=== PATIENT | female | born 1970 | race Caucasian/White ===

== ENCOUNTER 2021-11-27 16:25 | Outpatient (REF) | payer BC, SELFPAY ==
--- NOTE | 2021-11-27 14:55 | PAPFT_PTH ---
PATIENT: Carleen Nuñez LOC: [facility] U#:[id number] AGE/SX: 51/F ROOM: RE11/27/[address]: Maria Luisa Ty NP : 1970 BED: DIS: 11/27/2021 SPEC #: [id number] RECD: 11/27/21 18:38 STATUS: CHRISTINESundar GIRON #: [id number] ESTEVAN: 11/27/21 14:[address]: Maria Luisa Ty NP DEPT: FORMERLY [facility], 1928–1983 Cytology RECD BY: Hortencia Krishnamurthy ENTERED: 11/27/21 18:38 SP TYPE: PAPFT UTE DR: Unknown,Unknown Tissues: 1 - CX/ENDOCX FOR PAP SMEARS Procedures: PAP THIN PREP/[facility] Screening HPV DNA PROBE Comments: [id number]
== END 2021-11-27 16:26 | disposition home or self-care (01) ==
LOC: LBN 16:25
PROVIDERS: Visit Provider Nurse Practitioner Women's Health
DX: Z12.4 Encounter for screening for malignant neoplasm of cervix (principal); Z11.51 Encounter for screening for human papillomavirus (HPV)
CPT/HCPCS: 88142; 87624

== ENCOUNTER 2023-02-13 11:51 | Outpatient (CLI) | payer BC, SELFPAY ==
[2023-02-13 10:59] LABS: Albumin 3.9 g/dL (3.4-5.0); Alkaline Phosphatase 87 U/L (46-116); Chloride 105 mmol/L (98-107); Sodium 138 mmol/L (136-145)
[2023-02-13 11:00] LABS: Abs Immature Grans 0.01 10^3/uL (0.0-0.06); Absolute Basophil Count 0.04 10^3/uL (0.0-0.2); Absolute Eosinophil Count 0.13 10^3/uL (0.0-0.7); Absolute Monocyte Count 0.43 10^3/uL (0.1-0.8); Absolute Neutrophil Count 2.22 10^3/uL (1.2-6.7); Basophils % 0.9; Eosinophils % 2.9; HCT 39.6 % (36.0-46.0); HGB 12.9 g/dL (11.2-15.7); Immature Grans % 0.2; Lymphocytes % 37.5; MCH 28.9 pg (27.0-33.0); MCHC 32.6 % (32.0-36.0); MCV 89 fL (80-95); MPV 9.6 fL (8.0-11.0); Monocytes % 9.5; Platelet Count 229 10^3/uL (130-400); RBC 4.46 10^6/uL (3.93-5.22); RDW 14.4 % (11.7-14.6); RDW-SD 46.8 fL; WBC 4.53 10^3/uL (4.4-10.8)
[2023-02-13 11:08] LABS: Anion Gap 7.4 mmol/L (3-11); CO2 25.6 mmol/L (21.0-32.0); CREATININE 0.9 mg/dL (0.55-1.02); Potassium 4.5 mmol/L (3.5-5.1)
[2023-02-13 11:21] LABS: ALT 27 U/L (14-59); AST 21 U/L (15-37); BUN 11 mg/dL (7-18); Bilirubin, Total 0.5 mg/dL (0.2-1.0); Calcium 9.7 mg/dL (8.5-10.1); Glucose 89 mg/dL (74-106); Total Protein 8.1 g/dL (6.4-8.2)
== END 2023-02-13 11:52 | disposition home or self-care (01) ==
LOC: LBO 11:53
PROVIDERS: Visit Provider Surgery
DX: F41.9 Anxiety disorder, unspecified (principal); N39.3 Stress incontinence (female) (male); Z12.11 Encounter for screening for malignant neoplasm of colon
CPT/HCPCS: 36415; 80053; 85025

== ENCOUNTER 2023-02-18 09:03 | Day surgery (SDC) | payer BC, SELFPAY ==
--- NOTE | 2023-02-17 21:05 | COLE_ITS ---
Date of service: 02/18/23 Time of Service: 11:35 Colonoscopy Report Date of procedure: 02/18/23 Pre-op diagnosis general: CRC screening Post-op diagnosis procedure note: other (External hemorrhoids and adenomatous polyps) Surgeon: Yudelka Gutierrez Anesthesia Type: General:No Airway Estimated blood loss (mL): 3 Pathology: other Complications: None Disposition: same day Prep: Miralax/Dulcolax Retraction Time: 29 Procedure Description: After informed consent was obtained the patient was taken to the procedure room and placed in a left decubitous position. Monitors were applied and a time out was done. The patients name, date of , procedure, allergies to medications and metal in their body was reviewed. The patient was then sedated. Once sedated and comfortable a rectal exam was done. External exam was normal- adenomatous polyps internal exam revealed a normal sphincter tone and no palpable masses. The scope was then introduced and retrofelexed. Grade 1 internal hemorrhoids were identified. The scope was then advanced to the cecum without difficulty. The TI and appendiceal orifice were identified. The prep was BBPS 3 in all segments for total of 9. The scope was then slowly retracted over minutes back into the rectum over 29 minutes.. There are no diverticula noted today. She has a 0.75 cm flat polyp on the ileocecal valve that is removed with a cold biopsy forceps. She has a 1 cm flat polyp at 90 cm that is removed with a cold snare. A clip was placed across the defect. She had another 1 cm flat polyp at 80 cm. This was removed with a cold snare. A clip was placed across the de fect. She had a 0.75 cm polyp at 70 cm. This is removed with a cold snare. A clip was placed across the defect. There is no bleeding from any of the polypectomy sites. All specimen is retrieved. The scope was removed and the patient was woken up and taken back to Same day surgery in stable condition. The patient tolerated the procedure well and there were no immediate complications. Follow up: The patient should follow up in 3 years unless they develop changes in bowel habits or other new gastrointestinal complaints.
--- NOTE | 2023-02-17 21:06 | PDOC.DSDIS_ITS ---
Date of service: 02/18/23 Time of Service: 11:34 Discharge Plan Disposition Patient Disposition: Home Condition: Good Discharge Details Reason For Visit: CRC screening Attending Provider: Yudelka Gutierrez Primary Care Provider: None,None Home Meds and New Rx's Prescriptions: Continued lorazepam 1 mg tablet 1 mg PO QHS PRN activated You powder See Rx Instructions PO DAILY Rx Instructions: Daily orally daily; Simplex F 1 tab PO DAILY Discontinued polyethylene glycol 3350 17 gram/dose powder 238 g PO ONCE Qty: 238 0RF Rx Instructions: take per colonoscopy instructions bisacodyl [Dulcolax (bisacodyl)] 5 mg tablet,delayed release (DR/EC) 5 mg PO ONCE Qty: 4 0RF Rx Instructions: take per colonoscopy instructions Discharge Instructions Additional Instructions: DSU Colonoscopy Post- Op Instructions Instructions for Everyone who is given Anesthesia: For your safety, please do the following for the next twenty-four (24) hours: *Do Not operate a motor vehicle (car, truck, motorcycle, etc.) *Do Not drink alcoholic beverages or use any recreational drugs for the first 24 hours or while taking pain medications. The medications in your body may have a reaction that can be dangerous. *Do Not make any important decisions or sign any important papers. Findings: Adenomatous polyps x4 Follow up: My office will send a letter in 2 to 3 weeks time with the results of pathology and when we want you to repeat the colonoscopy, most likely 3 years to -No aspirin/NSAIDs for 5 days. 1. No lifting over 20 pounds or strenuous activity for the first 24 hours after your procedure. After 24 hours there are no restrictions on your activity but you may feel fatigued for a few days. 2. After you arrive home you may have a light meal and return to your normal diet as you can tolerate it without feeling sick to your stomach. 3. You may have a bloated, gaseous feeling in your belly (abdomen) after a colonoscopy. Passing gas and belching will help. Walking or lying down on your left side with your knees flexed may relieve the discomfort. Call the office at [phone] (Office) or [phone] (Hospital) right away if you notice any of the following: a.Vomiting of blood or ?coffee ground stools?. b.Rectal bleeding 1Tbsp, blood clots or continuous bleeding. c.Severe belly (abdominal) pain. d.A hard distended belly (abdomen) and an inability to pass gas. 4. Please don?t expect to have a normal BM (bowel movement) for 2-3 days after your procedure. 5. If there are questions regarding the findings of your procedure, please co ntact your doctor 6. If you are unable to contact your doctor with a problem, contact the hospital at [phone]. 7. Continue all your regular medications unless directed otherwise. I understand the above instructions and have no questions. Signature of Patient or Adult Escort Name of Responsible Adult Escort Signature of Nurse Date/Time Activity:: see above Diet:: see above Discharge Orders Discharge Orders: Discharge Order (Routine); Ordered 02/18/23 Ordered By: Yudelka Gutierrez DS: Diagnosis Discharge Diagnosis (1) Screening for malignant neoplasm of colon performed: Status: Acute Asessment and Plan: The patient is seen and examined after their colonoscopy.? The patient has been able to pass gas.? They are not having abdominal pain.? They have been able to tolerate liquids and a snack.? They do not have any nausea or vomiting.? They are not having any chest pain or shortness of breath.??? They are not having any rectal bleeding. Their vital signs have been stable-see nursing notes. We discussed findings during their colonoscopy, and any biopsies that were done/polyps that were removed. The patient will be sent a letter with any biopsy results, and when to repeat the colonoscopy.-see discharge instructions. Patient was given explicit instructions to follow-up regarding colonoscopy-refer to discharge instructions.? We reviewed resumption of medications. Patient verbalized understanding and discharged in stable and satisfactory condition- See nursing notes. (2) External hemorrhoids without complication: Status: Acute (3) Adenomatous polyps: Status: Acute
[2023-02-18] MEDS: Lactated Ringers 1,000 ML 80 ML IV (09:30)
[2023-02-18 09:31] VITALS: BP 106/74; PULSE 78; RESP 16; TEMP 36.1; O2SAT 100
--- NOTE | 2023-02-18 09:49 | ANES.PREOP_ITS ---
General Info Date of Service Date Performed: 02/18/23 Height: 5 ft 8 in Weight: 95.6 kg Body Mass Index (BMI): 32.0 Surgical Procedure: Operation Date: 02/18/23 09:50 Proposed Procedure Side Surgeon p Colonoscopy, possible poypectomy Yudelka Gutierrez, DO Actual Procedure Side Surgeon p Colonoscopy, possible poypectomy Yudelka Gutierrez, DO Meds Allergies and Home Medications Allergies Allergy/AdvReac Type Severity Reaction Status Date / Time bee venom protein (honey bee) Allergy Swelling/Ed Verified 02/18/23 09:28 jena bupropion [From Wellbutrin] AdvReac Intermediate Vertigo Verified 02/18/23 09:28 Home Medication Medication Instructions Recorded lorazepam 1 mg tablet 1 mg PO QHS PRN 11/27/21 Simplex F 1 tab PO DAILY 02/13/23 activated You See Rx Instructions PO DAILY 02/13/23 Current Visit Medications: Current Medications Generic Name Dose Route Start Last Admin Trade Name Freq PRN Reason Stop Dose Admin Hyoscyamine Sulfate 0.125 mg 02/18/23 10:52 Hyoscyamine 0.125 Mg Sl/Oral/Chew SL 03/20/23 10:51 DIRECTED PRN Ringer's Solution 1,000 mls @ 80 mls/hr 02/18/23 06:00 02/18/23 09:30 IV 03/19/23 23:59 80 mls/hr INFUSION KELSIE Administration IV Miscellaneous Supplies 1 each 02/18/23 06:00 Iv Access IV 03/19/23 23:59 DIRECTED KELSIE Ondansetron HCl 4 mg 02/18/23 10:52 Ondansetron 4 Mg/2 Ml Vial IVP 03/20/23 10:51 Q4H PRN PRN Nausea / Vomiting Sodium Chloride 0 ml 02/18/23 06:00 Normal Saline Flush 10 Ml Syr IV 03/19/23 23:59 PRN PRN Sodium Chloride 0 ml 02/18/23 06:00 Normal Saline 10 Ml Vial IJ 03/19/23 23:59 DIRECTED PRN Sterile Water 0 ml 02/18/23 06:00 Water,Injection,Sterile 10 Ml Vial IJ 03/19/23 23:59 DIRECTED PRN PFSH Active Problems Active Problems: Problem Status Onset Code Anxiety F41.9 Stress incontinence N39.3 Encounter for screening for malignant neoplasm of colon Z12.11 Screening for malignant neoplasm of colon performed Z12.11 Medical History Medical History History of depression No pxs for years Migraine Past history rare now Surgical History Surgical History (Updated 02/18/23 @ 09:27 by Donna Colbert) Hx of dilation and curettage Ligation of fallopian tube 1998 Alcohol Alcohol Intake: current Alcohol intake frequency: a few times a week Substance Use Substance use: Never Substance use type: does not use Prental History History 2 Para 2 Hx # Term Pregnancies Multiple births Hx # Pregnancies Ectopic pregnancies AB induced Hx Number of Living Children AB spontaneous Vital Signs and Lab Results Vital Signs Most Recent Vital Signs in EMR: Most Recent Vital Signs Temp Pulse Resp BP Pulse Ox 36.1 C L 78 16 106/74 100 02/18/23 09:31 02/18/23 09:31 02/18/23 09:31 02/18/23 09:31 02/18/23 09:31 Lab Results Blood Type / Crossmatch: No Data to Display Complete Blood Count: White Blood Count 4.53 10^3/uL (4.4-10.8) 02/13/23 10:54 Red Blood Count 4.46 10^6/uL (3.93-5.22) 02/13/23 10:54 Hemoglobin 12.9 g/dL (11.2-15.7) 02/13/23 10:54 Hematocrit 39.6 % (36.0-46.0) 02/13/23 10:54 Platelet Count 229 10^3/uL (130-400) 02/13/23 10:54 Complete Metabolic Panel: Sodium 138 mmol/L (136-145) 02/13/23 10:55 Potassium 4.5 mmol/L (3.5-5.1) 02/13/23 10:55 Chloride 105 mmol/L (98-107) 02/13/23 10:55 Carbon Dioxide 25.6 mmol/L (21.0-32.0) 02/13/23 10:55 BUN 11 mg/dL (7-18) 02/13/23 10:55 Creatinine 0.9 mg/dL (0.55-1.02) 02/13/23 10:55 Est GFR (CKD-EPI 2021) 77.40 (mL/min/1.73m2) 02/13/23 10:55 Calcium 9.7 mg/dL (8.5-10.1) 02/13/23 10:55 Albumin 3.9 g/dL (3.4-5.0) 02/13/23 10:55 Glucose 89 mg/dL (74-106) 02/13/23 10:55 Liver Function Panel: Alanine Aminotransferase (ALT/SGPT) 27 U/L (14-59) 02/13/23 10: 55 Aspartate Amino Transf (AST/SGOT) 21 U/L (15-37) 02/13/23 10:55 Coagulation Panel: No Data to Display Cardiac Panel: No Data to Display Arterial Blood Gas: No Data to Display Venous Blood Gas: No Data to Display Pancreas Panel: No Data to Display Thyroid Panel: No Data to Display Infectious Disease: No Data to Display Blood Cultures: No Data to Display Toxicology Panel: No Data to Display Panel: No Data to Display Anesthesia Assessment and Plan Anesthesia History Personal History: No History of Anesthesia Complications Family History: No Family History of Anesthesia Complications Exercise Tolerance Exercise Tolerance: Metabolic Equivalents>4 Pertinent Negatives Pertinent Negatives: No Symptoms of GERD Cardiac & Pulmonary Exam Cardiac Exam: Normal S1/S2 Heart Sounds Pulmonary Exam: Clear Bilateral Breath Sounds Implantable Cardiac Device Does patient have a Pacemaker or an ICD?: No Airway Exam Known Difficult Airway: No Mallampati Class: 2 Mouth Opening: Normal (> 3cm) Thyromental Distance: Greater than 3 cm Neck Range of Motion: Full ROM Neck Circumference: Normal Teeth Condition: Normal Dentition ASA Classification ASA Score: ASA 2 Emergency Case?: No NPO Status NPO Status: NPO Clears >2 hours, Solids >8 hours Status Status: Not Relevant due to Medical History Anesthesia Plan Resuscitation Status: Full Code Anesthesia Technique: General Anesthesia Airway Planned: Natural Airway Monitors Used: Standard Monitors
[2023-02-18 09:50] VITALS: BMI 32.0
--- NOTE | 2023-02-18 10:04 | BOWEL_PTH ---
PATIENT: Carleen Nuñez LOC: [facility] U#:[id number] AGE/SX: 52/F ROOM: RE02/18/[address]: Yudelka Gutierrez : 1970 BED: DIS: 02/18/2023 SPEC #: [id number] RECD: 02/18/23 15:00 STATUS: CARLOTA REQ #: [id number] ESTEVAN: 02/18/23 10:[address]: Yudelka Gutierrez DEPT: Surgical Specimen RECD BY: Dea Mix ENTERED: 02/18/23 15:01 SP TYPE: Bowel OTHR DR: None Tissues: 1 - BIOPSY BOWEL 2 - BIOPSY BOWEL 3 - BIOPSY BOWEL 4 - BIOPSY BOWEL Procedures: GROSS AND MICRO LEVEL 4 Comments: [id number]
--- NOTE | 2023-02-18 10:39 | W.ANESPOSTOP ---
Postoperative Evaluation Date, Time and Location Date Performed: 02/18/23 Time Performed: 10:39 Patient Location: Day Surgery Unit Vital Signs Most Recent Imported Vital Signs: Most Recent Vital Signs Temp Pulse Resp BP Pulse Ox 36.1 C L 78 16 106/74 100 02/18/23 09:31 02/18/23 09:31 02/18/23 09:31 02/18/23 09:31 02/18/23 09:31 Pain Score Most Recent Pain Score: Most Recent Pain Score Pain Level 0 02/18/23 09:31 Assessment Mental Status: Awake (Alert & Oriented to Patient Baseline) Airway and Respiratory Function: Patent airway with normal (patient baseline) respiratory exam Cardiovascular Function: Hemodynamically Stable Hydration Status: Adequately Hydrated Nausea & Vomiting: No Nausea or Vomiting Pain: Pt. Denies Any Pain Peripheral Nerve Block: Patient did not receive a nerve block
[2023-02-18 10:40] VITALS: BP 100/67; PULSE 70; RESP 17; TEMP 36.1; O2SAT 96
[2023-02-18 11:08] VITALS: BP 108/76; PULSE 54; RESP 16; TEMP 36.2; O2SAT 99
== END 2023-02-18 11:59 | disposition home or self-care (01) ==
PROVIDERS: Visit Provider Surgery
PROC: 0DJD8ZZ Inspection of Lower Intestinal Tract, Via Natural or Artificial Opening Endoscopic (ICD-10-PCS; CPT 45378; principal; 2023-02-18 09:45)
DX: Z12.11 Encounter for screening for malignant neoplasm of colon (principal); D12.3 Benign neoplasm of transverse colon; K64.0 First degree hemorrhoids; K64.4 Residual hemorrhoidal skin tags; N39.3 Stress incontinence (female) (male); F41.9 Anxiety disorder, unspecified; D12.4 Benign neoplasm of descending colon
CPT/HCPCS: 45385; 45380; 81025; 88305; J2704